=== PATIENT | female | born 1960 | race Caucasian/White ===

== ENCOUNTER 2024-03-10 10:05 | Inpatient (IN) | payer OTHER ==
[~2024-03-10] VITALS: Ht 170.2 cm; Wt 54.4 kg
[~2024-03-10 10:05] MED LIST: OXYACE5T PO
[2024-03-10] MEDS ORDERED: Pantoprazole Sodium 40 MG Injection IV ONE (10:45)
[2024-03-10] MEDS ORDERED: Ondansetron HCl 2 MG / ML 2ML Vial IV ONE (10:45)
[2024-03-10] MEDS ORDERED: NS 1,000 ML IV SCH ×2 (10:45→19:00)
[2024-03-10] MEDS ORDERED: Diphth,Pertuss(Acell),Tet Vac 0.5 ML VIAL IM ONE (10:50)
[2024-03-10 11:13] LABS: Ethanol (Alcohol), Blood, Med <3 mg/dL; Magnesium, Blood 1.6 mg/dL (1.6-2.4); Phosphorus, Blood 3.8 mg/dL (2.5-4.9)
[2024-03-10 11:55] LABS: BASOPHILS ABSOLUTE AUTO 0.04 K/mm3 (0.00-0.23); BASOPHILS PERCENT AUTO 0 % (0-2); EOSINOPHILS PERCENT AUTO 0 % (0-6); Hematocrit 33.3 % (33.0-51.0); Hemoglobin 11.5 g/dL (11.5-16.0); IMMATURE GRAN ABSOLUTE AUTO 0.04 K/mm3 (0.00-0.10); IMMATURE GRAN PERCENT AUTO 0 % (0-1); LYMPHOCYTES ABSOLUTE AUTO 0.68 K/mm3 (0.84-5.20); LYMPHOCYTES PERCENT AUTO 7 % (21-46); MONOCYTES ABSOLUTE AUTO 0.44 K/mm3 (0.16-1.47); MONOCYTES PERCENT AUTO 4 % (4-13); Mean Corpuscular HGB Conc 34.5 g/dL (31.5-36.5); Mean Corpuscular Volume 101 fL (80-100); Mean Platelet Volume 10.6 fL (9.1-12.4); NEUTROPHILS ABSOLUTE AUTO 9.33 K/mm3 (1.96-9.15); NEUTROPHILS PERCENT AUTO 89 % (41-73); Platelet Count 174 K/mm3 (150-400); RDW Standard Deviation 48.7 fL (35.1-46.3); Red Blood Cell Count 3.29 M/mm3 (3.80-5.20); White Blood Cell Count 10.53 K/mm3 (4.00-11.30)
[2024-03-10 12:13] LABS: Albumin, Blood 3.9 g/dL (3.4-5.0); Albumin/Globulin Ratio 1.1 (0.8-1.8); Bilirubin, Total 1.3 mg/dL (0.1-1.0); Bun/Creatinine Ratio 65.1 (12.0-20.0); Calcium, Blood 8.7 mg/dL (8.5-10.1); Creatinine, Blood 0.51 mg/dL (0.40-1.00); Globulin, Blood 3.7 g/dL (2.2-4.0); Total Protein, Blood 7.6 g/dL (6.4-8.2)
[2024-03-10 14:17] LABS: Source, Urine Clean Catch
[2024-03-10 14:36] LABS: Appearance, Urine Clear (Clear); Bilirubin, Urine Neg (Neg); Blood, Urine Neg (Neg); Color, Urine Yellow (P-Yellow); Glucose Qualitative, Urine Neg (Neg); Ketones, Urine 4+ (Neg); Leukocyte Esterase, Urine Neg (Neg); Nitrite, Urine Neg (Neg); Protein, Urine 1+ (Neg); Specific Gravity, Urine 1.015 (1.003-1.022); Urobilinogen, Urine NORM (Normal)
[2024-03-10 15:36] LABS: U Amphetamine Screen DETECTED; U Barbituate Screen Not Detected; U Benzodiazapine Screen Not Detected; U Buprenorphine Screen Not Detected; U Cannabinoids Screen DETECTED; U Cocaine Screen Not Detected; U Methadone Screen Not Detected; U Methamphetamine Screen DETECTED; U Opiates Screen Not Detected; U Oxycodone Screen Not Detected; U Phencyclidine Screen Not Detected
[2024-03-10] MEDS ORDERED: Acetaminophen 650 MG Supp PR PRN (18:05)
[2024-03-10] MEDS ORDERED: Ondansetron HCl 2 MG / ML 2ML Vial IV PRN (18:05)
[2024-03-10] MEDS ORDERED: Acetaminophen 325 MG TABLET PO PRN (18:05)
[2024-03-10] MEDS ORDERED: LORazepam 2 MG/ML 1ML Injection IV PRN (18:05)
[2024-03-10] MEDS ORDERED: Nicotine 14 MG PATCH TOP SCH (19:00)
[2024-03-10] MEDS ORDERED: Folic Acid 1 MG in NS 50 ML IV SCH (19:00)
[2024-03-10] MEDS ORDERED: Thiamine HCl 100 MG in NS 50 ML IV SCH (19:00)
[2024-03-10] MEDS ORDERED: NS 1,000 ML IV ONE (19:00)
[2024-03-10 19:39] LABS: Hematocrit 26.6 % (33.0-51.0); Hemoglobin 9.1 g/dL (11.5-16.0)
[2024-03-10 20:25] VITALS: BP 133/78
[2024-03-10] MEDS ORDERED: Sennosides 8.6 MG Tab PO SCH (21:00)
[2024-03-11 00:04] LABS: Hematocrit 27.6 % (33.0-51.0); Hemoglobin 9.5 g/dL (11.5-16.0)
[2024-03-11] MEDS ORDERED: Folic Acid 1 MG in NS 50 ML IV SCH (00:07)
[2024-03-11 02:53] VITALS: BP 129/98
[2024-03-11 04:12] LABS: BASOPHILS ABSOLUTE AUTO 0.02 K/mm3 (0.00-0.23); BASOPHILS PERCENT AUTO 0 % (0-2); EOSINOPHILS PERCENT AUTO 0 % (0-6); Hematocrit 25.6 % (33.0-51.0); Hemoglobin 8.8 g/dL (11.5-16.0); IMMATURE GRAN ABSOLUTE AUTO 0.03 K/mm3 (0.00-0.10); IMMATURE GRAN PERCENT AUTO 0 % (0-1); LYMPHOCYTES ABSOLUTE AUTO 1.61 K/mm3 (0.84-5.20); LYMPHOCYTES PERCENT AUTO 15 % (21-46); MONOCYTES PERCENT AUTO 9 % (4-13); Mean Corpuscular HGB 34.6 pg (26.0-34.0); Mean Corpuscular HGB Conc 34.4 g/dL (31.5-36.5); Mean Corpuscular Volume 101 fL (80-100); Mean Platelet Volume 10.3 fL (9.1-12.4); NEUTROPHILS ABSOLUTE AUTO 8.04 K/mm3 (1.96-9.15); NEUTROPHILS PERCENT AUTO 76 % (41-73); Platelet Count 129 K/mm3 (150-400); RDW Standard Deviation 47.8 fL (35.1-46.3); Red Blood Cell Count 2.54 M/mm3 (3.80-5.20)
[2024-03-11 04:30] LABS: Albumin, Blood 3.2 g/dL (3.4-5.0); Albumin/Globulin Ratio 1.1 (0.8-1.8); Bun/Creatinine Ratio 45.6 (12.0-20.0); Calcium, Blood 8.4 mg/dL (8.5-10.1); Creatinine, Blood 0.48 mg/dL (0.40-1.00); Globulin, Blood 2.8 g/dL (2.2-4.0); Potassium, Blood 3.9 mmol/L (3.5-5.5)
[2024-03-11] MEDS ORDERED: Pantoprazole Sodium 40 MG Injection IV SCH (06:00)
--- NOTE | 2024-03-11 07:11 | NUR ---
DISCHARGE NOTE PER GLASS LINED TANK REPAIRER RN PATIENT COMPLETED AMA PAPERWORK, AWARE. PATIENT PIV REMOVED, TELEMETRY REMOVED. PATIENT AMBULATROY AND LEFT THIS FACILITY WITH ALL BELONGINGS AT [id number].
[2024-03-11] MEDS ORDERED: Multivitamins 1 Tab PO SCH (09:00)
[2024-03-11] MEDS ORDERED: Thiamine HCl 100 MG in NS 50 ML IV SCH (10:00)
== END 2024-03-11 07:16 | disposition left against medical advice (07) | DRG 312 ==
LOC: ER 10:05 → MEDS 10:06 → ER 10:06 → MEDS 18:01
PROVIDERS: Family Medicine; Student in an Organized Health Care Education/Training Program; ADMIT Student in an Organized Health Care Education/Training Program
PROC: 3E0234Z Introduction of Serum, Toxoid and Vaccine into Muscle, Percutaneous Approach (ICD-10-PCS; principal; 2024-03-10)
PROC: HZ2ZZZZ Detoxification Services for Substance Abuse Treatment (ICD-10-PCS; 2024-03-10)
DX: R55 Syncope and collapse (principal); F10.24 Alcohol dependence with alcohol-induced mood disorder; K92.0 Hematemesis; E87.1 Hypo-osmolality and hyponatremia; E87.20 Acidosis, unspecified; Z53.29 Procedure and treatment not carried out because of patient's decision for other reasons; K76.0 Fatty (change of) liver, not elsewhere classified; K59.09 Other constipation; S01.01XA Laceration without foreign body of scalp, initial encounter; F15.10 Other stimulant abuse, uncomplicated; E87.8 Other disorders of electrolyte and fluid balance, not elsewhere classified; Z23 Encounter for immunization; T73.0XXA Starvation, initial encounter; F17.210 Nicotine dependence, cigarettes, uncomplicated; Z98.890 Other specified postprocedural states; Z87.19 Personal history of other diseases of the digestive system; W01.198A Fall on same level from slipping, tripping and stumbling with subsequent striking against other object, initial encounter; Y92.002 Bathroom of unspecified non-institutional (private) residence as the place of occurrence of the external cause
CPT/HCPCS: 36415; 70450; 71046; 72125; 74177; 80053; 80320; 82010; 83605; 83735; 84100; 84484; 85014; 85018; 85025; 86850; 86900; 86901; 90471; 90715; 93005; 93010; 96361; 96374-59; 96375; 99285-25; A9270; J2405; J2470; J3411; J7030; L0160; Q9967